=== PATIENT | male | born 1965 | race Caucasian/White ===

== ENCOUNTER → 2019-01-18 08:37 | Outpatient (CLI) | payer MEDICARE ==
[2013-10-01 06:10] VITALS: BMI 31.2
[~2019-01-18 08:37] MED LIST: FLEXERIL10 MG PO; MEVACOR20 MG PO; NORCO 10/325 TA1 TA1 PO; PRINIVIL10 MG PO
[2019-01-18 09:46] LABS: BASOPHILS 0.3 % (0-2); EOSINOPHILS 3.2 % (0-7); HEMATOCRIT 43.7 % (42.0-54.0); HEMOGLOBIN 15.3 g/dL (13.5-17.5); IMMATURE GRANULOCYTES 0.2 % (0-5); LYMPHOCYTES 29.8 % (15-50); MCH 30.2 pg (26.0-34.0); MCV 86.2 fL (80.0-100.0); MEAN PLATELET VOLUME 9.5 fL (7.4-10.4); MONOCYTES 6.5 % (2-11); PLATELET COUNT 167 10x3/uL (130-400); RBC 5.07 10x6/uL (4.20-6.10); RDW 13.1 % (11.5-14.5)
[2019-01-18 10:13] LABS: ALBUMIN 4.2 g/dL (3.4-5.0); ALKALINE PHOSPHATASE 51 U/L (46-116); ALT (SGPT) 29 U/L (10-68); BILIRUBIN - TOTAL 0.79 mg/dL (0.2-1.3); CALC OSMOLALITY 281 mosm/kg (275-300); CARBON DIOXIDE 24.4 mmol/L (21.0-32.0); CHLORIDE - SERUM 105 mmol/L (98-107); CHOL - HDL RATIO 5.2 ratio (2.3-4.9); CHOLESTEROL, TOTAL 188 mg/dL (0-200); CREATININE - SERUM 0.9 mg/dL (0.6-1.3); GLUCOSE 102 mg/dL (74-106); HDL CHOLESTEROL 36 mg/dL (32-96); LDL CHOLESTEROL 94 mg/dL (0-100); LDL-HDL RATIO 2.6 ratio (1.5-3.5); PROTEIN - SERUM 7.5 g/dL (6.4-8.2); SODIUM 141 mmol/L (136-145); TRIGLYCERIDE 291 mg/dL (30-200); UREA NITROGEN 14 mg/dL (7-18); eGFR NON AFRICAN AMERICAN > 90 mL/min (90-120)
== END | disposition home or self-care (01) ==
LOC: D.LAB 08:37
PROVIDERS: ATTEND Family Medicine
DX: M54.5 Low back pain (principal); I10 Essential (primary) hypertension; M54.2 Cervicalgia; Z00.00 Encounter for general adult medical examination without abnormal findings; K59.03 Drug induced constipation; Z12.5 Encounter for screening for malignant neoplasm of prostate

== ENCOUNTER 2019-10-12 18:20 | Emergency (ER) | payer MEDICARE ==
[~2019-10-12] VITALS: Ht 182.9 cm; Wt 82.7 kg
[2019-10-12 18:26] VITALS: Ht 182.9 cm; Wt 82.7 kg
[2019-10-12] MEDS ORDERED: NAPROSYN500 MG PO (19:28)
[2019-10-12 19:45] VITALS: BP 125/78
== END 2019-10-12 19:46 | disposition home or self-care (01) ==
LOC: D.ER 18:20
DX: S50.01XA Contusion of right elbow, initial encounter (principal); W19.XXXA Unspecified fall, initial encounter; Y93.9 Activity, unspecified; Y92.89 Other specified places as the place of occurrence of the external cause; I10 Essential (primary) hypertension

== ENCOUNTER → 2019-10-24 06:04 | Outpatient (CLI) | payer MEDICARE ==
[2019-10-12 18:26] VITALS: BMI 24.7
[~2019-10-24 06:04] MED LIST changes: +NAPROSYN500 MG PO
[2019-10-24 07:00] LABS: CHOL - HDL RATIO 3.9 ratio (2.3-4.9); LDL-HDL RATIO 2.1 ratio (1.5-3.5)
== END | disposition home or self-care (01) ==
LOC: D.LAB 06:04
PROVIDERS: ATTEND Family Medicine
DX: E78.3 Hyperchylomicronemia (principal)

== ENCOUNTER → 2020-05-30 13:12 | Outpatient (CLI) | payer OTHER ==
[2019-10-12 18:26] VITALS: BMI 24.7
== END | disposition home or self-care (01) ==
LOC: D.RAD 13:12
PROVIDERS: ATTEND Family Medicine
DX: V89.2XXA Person injured in unspecified motor-vehicle accident, traffic, initial encounter (principal)